=== PATIENT | female | born 1965 | race Caucasian/White ===

== ENCOUNTER 2018-12-01 07:56 | Day surgery (SDC) | payer BC ==
[2018-11-30 13:35] VITALS: BMI 23.6
[2018-12-01 09:15] VITALS: RESP 18; TEMP 97.8
[2018-12-01] MEDS ORDERED: Lactated Ringer's 500 ML IV ONE (10:15)
[2018-12-01] MEDS ORDERED: Lidocaine Hydrochloride 5 ML INJ ONE (10:19)
[2018-12-01] MEDS ORDERED: Propofol 10 mg/ml Inj (20 ML) ONE (10:19)
[2018-12-01 10:25] VITALS: O2SAT 100
[2018-12-01 11:47] VITALS: BP 123/76; PULSE 73
== END 2018-12-01 11:48 | disposition home or self-care (01) ==
LOC: C.ENDO 07:56
PROVIDERS: ATTEND Internal Medicine Gastroenterology
DX: Z12.11 Encounter for screening for malignant neoplasm of colon (principal); K57.30 Diverticulosis of large intestine without perforation or abscess without bleeding; K64.0 First degree hemorrhoids; J45.909 Unspecified asthma, uncomplicated
CPT/HCPCS: 45378; 84703; J2704; J7120